=== PATIENT | female | born 1960 | race Caucasian/White ===

== ENCOUNTER 2023-12-01 12:56 | Emergency (ER) | payer BC, OTHER ==
[2023-12-01 13:03] VITALS: BP 103/88; PULSE 76; RESP 16; TEMP 98.2; BMI 35.5
== END 2023-12-01 14:44 | disposition home or self-care (01) ==
LOC: FER 12:56
PROC: 0XQRXZZ Repair Left Middle Finger, External Approach (ICD-10-PCS; principal; 2023-12-01)
DX: S61.213A Laceration without foreign body of left middle finger without damage to nail, initial encounter (principal); W26.8XXA Contact with other sharp object(s), not elsewhere classified, initial encounter
CPT/HCPCS: 99283-25